=== PATIENT | male | born 1935 | race Caucasian/White ===

== ENCOUNTER 2016-08-11 16:40 | Inpatient (IN) | payer MEDICARE, OTHER ==
[~2016-08-11] VITALS: Ht 172.7 cm; Wt 85.7 kg
[~2016-08-11 16:40] MED LIST: ALLO300T PO; ASPI-496 PO; AZIT500T77 PO; BENA10TA2 PO; BENA20TA2 PO; CEFD300C37 PO; CIPR500T3 PO; CLOP75TA PO; CLOP75TA22 PO; CYAN25009 PO; DIPH25CA46 PO; ERGO400T2 PO; EZET10TA3 PO; FLUT1DIS3 INH; GLIP2.5T16 PO; GLIP5TAB10 PO; GUAI-103 PO; GUAI200T3 PO; HYDR-3342 PO; ISOS20TA3 PO; LACT1CAP24 PO; METO-93 PO; METR500T PO; PREG75CA PO; RANI150T60 PO; SULF1TAB3 PO; TIOT18CA INH; VANC1VIA3 PO
[2016-08-11] MEDS ORDERED: PLEASE ENTER ALLERGIES MC SCH ×2 (17:00)
[2016-08-11] MEDS ORDERED: PIPERACILLIN/TAZO 3.375 GM in SODIUM CHLORIDE 0.9% 50 ML IVPB ONE (17:00)
[2016-08-11] MEDS ORDERED: SODIUM CHLORIDE FLUSH 10ML SYR IVF ONE (17:00)
[2016-08-11] MEDS ORDERED: SODIUM CHLORIDE 0.9% 1,000ML IVBOLUS ONE (17:00)
[2016-08-11] MEDS ORDERED: VANCOMYCIN PER PHARMACY MC ONE (17:00)
[2016-08-11] MEDS ORDERED: PLEASE ENTER HEIGHT AND WEIGHT MC SCH (17:00)
[2016-08-11 17:40] LABS: ASPARTATE AMINO TRANSFERASE 39 U/L (15-37); BLOOD UREA NITROGEN 29 mg/dL (7-18)
[2016-08-11] MEDS ORDERED: [UNRECOGNIZED DRUG - CODE] PO (17:50)
[2016-08-11] MEDS ORDERED: ASPI-496 PO (17:50)
[2016-08-11] MEDS ORDERED: DIPH25CA62 PO (17:50)
[2016-08-11] MEDS ORDERED: EZET10TA3 PO (17:50)
[2016-08-11] MEDS ORDERED: METO50TA4 PO (17:50)
[2016-08-11] MEDS ORDERED: GLIP2.5T16 PO (17:50)
[2016-08-11] MEDS ORDERED: ALLO300T PO (17:50)
[2016-08-11] MEDS ORDERED: CYAN1TAB29 PO (17:50)
[2016-08-11] MEDS ORDERED: CLOP75TA PO (17:50)
[2016-08-11] MEDS ORDERED: PREG75CA PO (17:50)
[2016-08-11] MEDS ORDERED: BENA20TA2 PO (17:50)
[2016-08-11] MEDS ORDERED: VANCOMYCIN 1,500 MG in SODIUM CHLORIDE 0.9% 250 ML IV ONE (18:00)
[2016-08-11] MEDS: SODIUM CHLORIDE 0.9% 1,000 ML IV SCH ×2 (20:10→22:20)
[2016-08-11] MEDS ORDERED: GUAIFENESIN 200 MG TABLET PO PRN (20:30)
[2016-08-11] MEDS ORDERED: GLUCAGON 1 MG IM PRN (20:30)
[2016-08-11] MEDS ORDERED: GUAIFENESIN/DM 200-20MG, 10ML UDC PO PRN (20:30)
[2016-08-11] MEDS ORDERED: BISACODYL 10 MG SUPP PR PRN (20:30)
[2016-08-11] MEDS ORDERED: DEXTROSE 4 GM TAB.CHEW PO PRN (20:30)
[2016-08-11] MEDS ORDERED: DEXTROSE 50%, 50ML SYRINGE IVPush PRN (20:30)
[2016-08-11] MEDS ORDERED: DOCUSATE 100 MG CAPSULE PO PRN (20:30)
[2016-08-11] MEDS ORDERED: ONDANSETRON 2MG/ML, 2ML IVPush PRN (20:30)
[2016-08-11] MEDS ORDERED: ACETAMINOPHEN 325 MG TABLET PO PRN (20:30)
[2016-08-11] MEDS ORDERED: POLYETHYLENE GLYCOL 17 GM PACKET PO PRN (20:30)
[2016-08-11] MEDS: INSULIN ASPART 100 UNITS/ML, PEN SQ-INSULIN SCH (21:00)
[2016-08-11 21:21] VITALS: BP 123/62
[2016-08-11] MEDS: LINEZOLID PMX 600MG/300ML 300 ML IV SCH (22:20)
[2016-08-11] MEDS: VANCOMYCIN 50 MG/ML ORAL SUSP PO SCH (23:06)
[2016-08-11] MEDS: LACTOBACILLUS CHEW TABLET PO SCH (23:08)
[2016-08-11] MEDS: SODIUM CHLORIDE FLUSH 10ML SYR IVF SCH (23:08)
[2016-08-11] MEDS: PREGABALIN 75 MG CAPSULE PO SCH (23:09)
[2016-08-11] MEDS: HEPARIN 5,000 UNITS/ML, 1ML SQ SCH (23:22)
[2016-08-12] MEDS: PIPERACILLIN/TAZO 3.375 GM in SODIUM CHLORIDE 0.9% 50 ML IV SCH ×4 (01:36→19:41)
[2016-08-12 03:49] VITALS: BP 108/53
[2016-08-12 06:33] LABS: ASPARTATE AMINO TRANSFERASE 28 U/L (15-37); BLOOD UREA NITROGEN 30 mg/dL (7-18)
[2016-08-12] MEDS: INSULIN ASPART 100 UNITS/ML, PEN SQ-INSULIN SCH ×4 (07:00→19:43)
[2016-08-12 08:20] VITALS: BP 109/52
[2016-08-12 09:06] LABS: POTASSIUM,URINE RANDOM 68 mmol/L
[2016-08-12] MEDS: ASPIRIN 81 MG TABLET EC PO SCH (09:47)
[2016-08-12] MEDS: VANCOMYCIN 50 MG/ML ORAL SUSP PO SCH ×3 (09:47→18:24)
[2016-08-12] MEDS: PREGABALIN 75 MG CAPSULE PO SCH ×2 (09:47→19:42)
[2016-08-12] MEDS: CLOPIDOGREL 75 MG TABLET PO SCH (09:48)
[2016-08-12] MEDS: LACTOBACILLUS CHEW TABLET PO SCH ×3 (09:48→19:42)
[2016-08-12] MEDS: METOPROLOL SUCCINATE 50 MG TAB.ER.24H PO SCH (09:48)
[2016-08-12] MEDS: BENAZEPRIL 20 MG TABLET PO SCH (09:48)
[2016-08-12] MEDS: EZETIMIBE 10 MG TABLET PO SCH (09:48)
[2016-08-12] MEDS: HEPARIN 5,000 UNITS/ML, 1ML SQ SCH ×3 (09:49→22:08)
[2016-08-12] MEDS: FLUTICASONE/VILANTEROL 100-25MCG/INH INH SCH (09:50)
[2016-08-12] MEDS: SODIUM CHLORIDE FLUSH 10ML SYR IVF SCH ×2 (09:50→19:42)
[2016-08-12] MEDS: SODIUM CHLORIDE 0.9% 1,000 ML IV SCH (10:42)
[2016-08-12] MEDS: LINEZOLID PMX 600MG/300ML 300 ML IV SCH ×2 (10:43→22:08)
[2016-08-12 12:37] VITALS: BP 148/68
[2016-08-12 19:59] VITALS: BP 129/66
[2016-08-13] MEDS: VANCOMYCIN 50 MG/ML ORAL SUSP PO SCH ×4 (00:26→20:41)
[2016-08-13] MEDS: PIPERACILLIN/TAZO 3.375 GM in SODIUM CHLORIDE 0.9% 50 ML IV SCH ×4 (00:27→20:41)
[2016-08-13 01:36] VITALS: BP 112/58
[2016-08-13] MEDS: SODIUM CHLORIDE 0.9% 1,000 ML IV SCH ×3 (01:39→21:25)
[2016-08-13 05:17] LABS: BLOOD UREA NITROGEN 33 mg/dL (7-18)
[2016-08-13 05:18] LABS: ASPARTATE AMINO TRANSFERASE 26 U/L (15-37)
[2016-08-13] MEDS: INSULIN ASPART 100 UNITS/ML, PEN SQ-INSULIN SCH ×4 (07:00→20:41)
[2016-08-13 07:03] VITALS: BP 116/59
[2016-08-13] MEDS: METOPROLOL SUCCINATE 50 MG TAB.ER.24H PO SCH (10:00)
[2016-08-13] MEDS: FLUTICASONE/VILANTEROL 100-25MCG/INH INH SCH (10:00)
[2016-08-13] MEDS: LINEZOLID PMX 600MG/300ML 300 ML IV SCH ×2 (10:00→21:25)
[2016-08-13] MEDS: EZETIMIBE 10 MG TABLET PO SCH (10:00)
[2016-08-13] MEDS: BENAZEPRIL 20 MG TABLET PO SCH (10:00)
[2016-08-13] MEDS: PREGABALIN 75 MG CAPSULE PO SCH ×2 (10:00→21:25)
[2016-08-13] MEDS: CLOPIDOGREL 75 MG TABLET PO SCH (10:00)
[2016-08-13] MEDS: ASPIRIN 81 MG TABLET EC PO SCH (10:00)
[2016-08-13] MEDS: HEPARIN 5,000 UNITS/ML, 1ML SQ SCH ×2 (10:00→18:40)
[2016-08-13] MEDS: LACTOBACILLUS CHEW TABLET PO SCH ×3 (10:00→21:25)
[2016-08-13] MEDS: SODIUM CHLORIDE FLUSH 10ML SYR IVF SCH ×2 (10:00→20:41)
[2016-08-13 14:14] VITALS: BP 127/65
[2016-08-13 20:03] VITALS: BP 140/71
[2016-08-14 01:19] VITALS: BP 137/69
[2016-08-14] MEDS: VANCOMYCIN 50 MG/ML ORAL SUSP PO SCH ×4 (01:57→20:27)
[2016-08-14] MEDS: HEPARIN 5,000 UNITS/ML, 1ML SQ SCH ×3 (01:57→17:14)
[2016-08-14] MEDS: PIPERACILLIN/TAZO 3.375 GM in SODIUM CHLORIDE 0.9% 50 ML IV SCH ×4 (01:57→20:27)
[2016-08-14] MEDS: SODIUM CHLORIDE 0.9% 1,000 ML IV SCH ×2 (05:03→15:39)
[2016-08-14 05:09] LABS: BLOOD UREA NITROGEN 32 mg/dL (7-18)
[2016-08-14] MEDS: INSULIN ASPART 100 UNITS/ML, PEN SQ-INSULIN SCH ×4 (07:00→20:28)
[2016-08-14 07:03] VITALS: BP 130/66
[2016-08-14] MEDS: EZETIMIBE 10 MG TABLET PO SCH (08:18)
[2016-08-14] MEDS: FLUTICASONE/VILANTEROL 100-25MCG/INH INH SCH (08:18)
[2016-08-14] MEDS: LACTOBACILLUS CHEW TABLET PO SCH ×3 (08:19→20:26)
[2016-08-14] MEDS: METOPROLOL SUCCINATE 50 MG TAB.ER.24H PO SCH (08:19)
[2016-08-14] MEDS: PREGABALIN 75 MG CAPSULE PO SCH ×2 (08:19→20:26)
[2016-08-14] MEDS: CLOPIDOGREL 75 MG TABLET PO SCH (08:19)
[2016-08-14] MEDS: SODIUM CHLORIDE FLUSH 10ML SYR IVF SCH ×2 (08:20→20:27)
[2016-08-14] MEDS: ASPIRIN 81 MG TABLET EC PO SCH (08:20)
[2016-08-14] MEDS: BENAZEPRIL 20 MG TABLET PO SCH (08:23)
[2016-08-14] MEDS: LINEZOLID PMX 600MG/300ML 300 ML IV SCH ×2 (09:49→21:45)
[2016-08-14 14:16] VITALS: BP 136/70
[2016-08-14 18:43] VITALS: BP 137/64
[2016-08-14 23:24] VITALS: BP 148/83
[2016-08-15] MEDS: VANCOMYCIN 50 MG/ML ORAL SUSP PO SCH ×4 (00:38→19:17)
[2016-08-15] MEDS: HYDROcodone/APAP 5/325 TABLET PO PRN ×3 (00:57→20:19)
[2016-08-15] MEDS: SODIUM CHLORIDE 0.9% 1,000 ML IV SCH ×2 (02:23→14:12)
[2016-08-15] MEDS: HEPARIN 5,000 UNITS/ML, 1ML SQ SCH ×3 (02:23→19:17)
[2016-08-15] MEDS: PIPERACILLIN/TAZO 3.375 GM in SODIUM CHLORIDE 0.9% 50 ML IV SCH ×4 (02:23→22:57)
[2016-08-15 04:35] LABS: BLOOD UREA NITROGEN 34 mg/dL (7-18)
[2016-08-15 07:21] VITALS: BP 135/76
[2016-08-15] MEDS: INSULIN ASPART 100 UNITS/ML, PEN SQ-INSULIN SCH ×4 (07:43→20:17)
[2016-08-15] MEDS: FLUTICASONE/VILANTEROL 100-25MCG/INH INH SCH (08:44)
[2016-08-15] MEDS: SODIUM CHLORIDE FLUSH 10ML SYR IVF SCH ×2 (08:44→20:18)
[2016-08-15] MEDS: LACTOBACILLUS CHEW TABLET PO SCH ×3 (08:45→20:18)
[2016-08-15] MEDS: ASPIRIN 81 MG TABLET EC PO SCH (08:45)
[2016-08-15] MEDS: PREGABALIN 75 MG CAPSULE PO SCH ×2 (08:45→20:18)
[2016-08-15] MEDS: METOPROLOL SUCCINATE 50 MG TAB.ER.24H PO SCH (08:45)
[2016-08-15] MEDS: BENAZEPRIL 20 MG TABLET PO SCH (08:45)
[2016-08-15] MEDS: EZETIMIBE 10 MG TABLET PO SCH (08:45)
[2016-08-15] MEDS: CLOPIDOGREL 75 MG TABLET PO SCH (08:50)
[2016-08-15] MEDS: LINEZOLID PMX 600MG/300ML 300 ML IV SCH ×2 (09:47→20:18)
[2016-08-15 14:38] VITALS: BP 154/78
[2016-08-15 18:44] VITALS: BP 157/80
[2016-08-15] MEDS: TEMAZEPAM 15 MG CAPSULE PO PRN (22:55)
[2016-08-16 01:00] VITALS: BP 136/81
[2016-08-16] MEDS: HEPARIN 5,000 UNITS/ML, 1ML SQ SCH ×3 (01:24→17:32)
[2016-08-16] MEDS: VANCOMYCIN 50 MG/ML ORAL SUSP PO SCH ×3 (01:24→19:59)
[2016-08-16] MEDS: PIPERACILLIN/TAZO 3.375 GM in SODIUM CHLORIDE 0.9% 50 ML IV SCH ×4 (03:18→19:58)
[2016-08-16] MEDS: SODIUM CHLORIDE 0.9% 1,000 ML IV SCH ×2 (03:19→14:42)
[2016-08-16 04:52] LABS: BLOOD UREA NITROGEN 32 mg/dL (7-18)
[2016-08-16] MEDS: HYDROcodone/APAP 5/325 TABLET PO PRN ×3 (06:15→15:10)
[2016-08-16] MEDS: INSULIN ASPART 100 UNITS/ML, PEN SQ-INSULIN SCH ×4 (07:00→20:00)
[2016-08-16 07:06] VITALS: BP 133/78
[2016-08-16] MEDS: SODIUM CHLORIDE FLUSH 10ML SYR IVF SCH ×2 (09:00→19:58)
[2016-08-16] MEDS: FLUTICASONE/VILANTEROL 100-25MCG/INH INH SCH (09:06)
[2016-08-16] MEDS: LACTOBACILLUS CHEW TABLET PO SCH ×3 (09:07→19:58)
[2016-08-16] MEDS: EZETIMIBE 10 MG TABLET PO SCH (09:07)
[2016-08-16] MEDS: BENAZEPRIL 20 MG TABLET PO SCH (09:07)
[2016-08-16] MEDS: CLOPIDOGREL 75 MG TABLET PO SCH (09:07)
[2016-08-16] MEDS: ASPIRIN 81 MG TABLET EC PO SCH (09:07)
[2016-08-16] MEDS: PREGABALIN 75 MG CAPSULE PO SCH ×2 (09:07→19:58)
[2016-08-16] MEDS: METOPROLOL SUCCINATE 50 MG TAB.ER.24H PO SCH (09:07)
[2016-08-16] MEDS: LINEZOLID PMX 600MG/300ML 300 ML IV SCH ×2 (11:03→23:09)
[2016-08-16 15:01] VITALS: BP 129/77
[2016-08-16 17:32] LABS: BLOOD UREA NITROGEN 30 mg/dL (7-18)
[2016-08-16 20:08] VITALS: BP_SYST 159; BP_SYST 175; BP_DIAS 73; BP_DIAS 81
[2016-08-17 02:42] VITALS: BP 167/78
[2016-08-17] MEDS: HYDROcodone/APAP 5/325 TABLET PO PRN ×3 (02:50→20:00)
[2016-08-17] MEDS: SODIUM CHLORIDE 0.9% 1,000 ML IV SCH (02:53)
[2016-08-17] MEDS: PIPERACILLIN/TAZO 3.375 GM in SODIUM CHLORIDE 0.9% 50 ML IV SCH (02:53)
[2016-08-17] MEDS: HEPARIN 5,000 UNITS/ML, 1ML SQ SCH ×3 (02:53→18:00)
[2016-08-17 06:49] VITALS: BP 131/74
[2016-08-17] MEDS: INSULIN ASPART 100 UNITS/ML, PEN SQ-INSULIN SCH ×4 (07:28→19:45)
[2016-08-17] MEDS: BENAZEPRIL 20 MG TABLET PO SCH (09:23)
[2016-08-17] MEDS: LACTOBACILLUS CHEW TABLET PO SCH ×3 (09:23→19:59)
[2016-08-17] MEDS: METOPROLOL SUCCINATE 50 MG TAB.ER.24H PO SCH (09:23)
[2016-08-17] MEDS: PREGABALIN 75 MG CAPSULE PO SCH ×2 (09:23→19:59)
[2016-08-17] MEDS: ASPIRIN 81 MG TABLET EC PO SCH (09:23)
[2016-08-17] MEDS: VANCOMYCIN 50 MG/ML ORAL SUSP PO SCH ×2 (09:23→20:00)
[2016-08-17] MEDS: CLOPIDOGREL 75 MG TABLET PO SCH (09:24)
[2016-08-17] MEDS: SODIUM CHLORIDE FLUSH 10ML SYR IVF SCH ×2 (09:24→19:59)
[2016-08-17] MEDS: EZETIMIBE 10 MG TABLET PO SCH (09:24)
[2016-08-17] MEDS: FLUTICASONE/VILANTEROL 100-25MCG/INH INH SCH (09:24)
[2016-08-17] MEDS ORDERED: LEVOFLOXACIN 750 MG TABLET PO SCH (10:00)
[2016-08-17] MEDS: LINEZOLID 600 MG TABLET PO SCH ×2 (10:12→19:59)
[2016-08-17 13:55] VITALS: BP 158/80
[2016-08-17 19:12] VITALS: BP 165/89
[2016-08-18] MEDS: HYDROcodone/APAP 5/325 TABLET PO PRN ×2 (00:48→17:09)
[2016-08-18 01:41] VITALS: BP 157/82
[2016-08-18] MEDS: HEPARIN 5,000 UNITS/ML, 1ML SQ SCH ×3 (02:00→20:14)
[2016-08-18] MEDS: INSULIN ASPART 100 UNITS/ML, PEN SQ-INSULIN SCH ×4 (07:00→20:12)
[2016-08-18 07:32] VITALS: BP 149/74
[2016-08-18] MEDS: PREGABALIN 75 MG CAPSULE PO SCH ×2 (08:17→20:14)
[2016-08-18] MEDS: BENAZEPRIL 20 MG TABLET PO SCH (08:17)
[2016-08-18] MEDS: LACTOBACILLUS CHEW TABLET PO SCH ×3 (08:17→20:14)
[2016-08-18] MEDS: LINEZOLID 600 MG TABLET PO SCH ×2 (08:17→20:14)
[2016-08-18] MEDS: METOPROLOL SUCCINATE 50 MG TAB.ER.24H PO SCH (08:17)
[2016-08-18] MEDS: CLOPIDOGREL 75 MG TABLET PO SCH (08:17)
[2016-08-18] MEDS: EZETIMIBE 10 MG TABLET PO SCH (08:17)
[2016-08-18] MEDS: VANCOMYCIN 50 MG/ML ORAL SUSP PO SCH ×2 (08:17→20:14)
[2016-08-18] MEDS ORDERED: FUROSEMIDE 20 MG/2 ML IV ONE (08:30)
[2016-08-18] MEDS: FLUTICASONE/VILANTEROL 100-25MCG/INH INH SCH (08:32)
[2016-08-18] MEDS: SODIUM CHLORIDE FLUSH 10ML SYR IVF SCH ×2 (08:33→20:13)
[2016-08-18] MEDS: ASPIRIN 81 MG TABLET EC PO SCH (08:34)
[2016-08-18 12:03] LABS: BLOOD UREA NITROGEN 31 mg/dL (7-18)
[2016-08-18 13:10] VITALS: BP 127/76
[2016-08-18 19:28] VITALS: BP 151/77
[2016-08-18] MEDS: FUROSEMIDE 20 MG/2 ML IV SCH (20:13)
[2016-08-19 01:40] VITALS: BP 144/72
[2016-08-19] MEDS: HEPARIN 5,000 UNITS/ML, 1ML SQ SCH ×3 (01:57→17:29)
[2016-08-19] MEDS: HYDROcodone/APAP 5/325 TABLET PO PRN ×2 (03:11→21:49)
[2016-08-19 03:38] LABS: BLOOD UREA NITROGEN 31 mg/dL (7-18)
[2016-08-19 07:39] VITALS: BP 143/79
[2016-08-19] MEDS ORDERED: LEVOFLOXACIN 500 MG TABLET PO SCH ×2 (08:00→10:00)
[2016-08-19] MEDS: INSULIN ASPART 100 UNITS/ML, PEN SQ-INSULIN SCH ×4 (09:56→21:00)
[2016-08-19] MEDS: ASPIRIN 81 MG TABLET EC PO SCH (10:00)
[2016-08-19] MEDS: LACTOBACILLUS CHEW TABLET PO SCH ×3 (10:00→21:49)
[2016-08-19] MEDS: METOPROLOL SUCCINATE 50 MG TAB.ER.24H PO SCH (10:01)
[2016-08-19] MEDS: EZETIMIBE 10 MG TABLET PO SCH (10:01)
[2016-08-19] MEDS: VANCOMYCIN 50 MG/ML ORAL SUSP PO SCH ×2 (10:01→21:49)
[2016-08-19] MEDS: BENAZEPRIL 20 MG TABLET PO SCH (10:01)
[2016-08-19] MEDS: LINEZOLID 600 MG TABLET PO SCH (10:01)
[2016-08-19] MEDS: CLOPIDOGREL 75 MG TABLET PO SCH (10:01)
[2016-08-19] MEDS: PREGABALIN 75 MG CAPSULE PO SCH ×2 (10:01→21:49)
[2016-08-19] MEDS: FLUTICASONE/VILANTEROL 100-25MCG/INH INH SCH (10:02)
[2016-08-19] MEDS: FUROSEMIDE 20 MG/2 ML IV SCH ×2 (10:02→21:49)
[2016-08-19] MEDS: SODIUM CHLORIDE FLUSH 10ML SYR IVF SCH ×2 (10:03→21:49)
[2016-08-19 13:10] VITALS: BP 117/70
[2016-08-19] MEDS ORDERED: PHARMACY INSTRUCTION MC SCH (15:00)
[2016-08-19 20:58] VITALS: BP 144/77
[2016-08-20 01:55] VITALS: BP 124/70
[2016-08-20] MEDS: HEPARIN 5,000 UNITS/ML, 1ML SQ SCH ×3 (02:37→18:00)
[2016-08-20 03:13] LABS: BLOOD UREA NITROGEN 34 mg/dL (7-18)
[2016-08-20] MEDS: HYDROcodone/APAP 5/325 TABLET PO PRN (05:07)
[2016-08-20 06:55] VITALS: BP 111/60
[2016-08-20] MEDS: INSULIN ASPART 100 UNITS/ML, PEN SQ-INSULIN SCH ×4 (07:00→21:00)
[2016-08-20] MEDS: FLUTICASONE/VILANTEROL 100-25MCG/INH INH SCH (08:45)
[2016-08-20] MEDS: LACTOBACILLUS CHEW TABLET PO SCH ×3 (08:46→21:42)
[2016-08-20] MEDS: SODIUM CHLORIDE FLUSH 10ML SYR IVF SCH ×2 (08:46→21:42)
[2016-08-20] MEDS: ASPIRIN 81 MG TABLET EC PO SCH (08:46)
[2016-08-20] MEDS: FUROSEMIDE 20 MG/2 ML IV SCH ×2 (08:46→21:42)
[2016-08-20] MEDS: CLOPIDOGREL 75 MG TABLET PO SCH (08:47)
[2016-08-20] MEDS: PREGABALIN 75 MG CAPSULE PO SCH ×2 (08:47→21:42)
[2016-08-20] MEDS: EZETIMIBE 10 MG TABLET PO SCH (08:47)
[2016-08-20] MEDS: VANCOMYCIN 50 MG/ML ORAL SUSP PO SCH ×2 (08:47→21:42)
[2016-08-20] MEDS: BENAZEPRIL 20 MG TABLET PO SCH ×2 (08:47→09:00)
[2016-08-20] MEDS: METOPROLOL SUCCINATE 50 MG TAB.ER.24H PO SCH (09:00)
[2016-08-20 14:45] VITALS: BP 141/72
[2016-08-20 21:34] VITALS: BP 148/79
[2016-08-20] MEDS: TEMAZEPAM 15 MG CAPSULE PO PRN (22:02)
[2016-08-21] MEDS: HEPARIN 5,000 UNITS/ML, 1ML SQ SCH ×2 (02:13→13:10)
[2016-08-21 03:08] LABS: BLOOD UREA NITROGEN 36 mg/dL (7-18)
[2016-08-21 05:00] VITALS: BP 130/80
[2016-08-21] MEDS: INSULIN ASPART 100 UNITS/ML, PEN SQ-INSULIN SCH ×4 (07:00→21:00)
[2016-08-21] MEDS ORDERED: LEVOFLOXACIN 750 MG TABLET PO SCH (08:00)
[2016-08-21 08:05] VITALS: BP 138/87
[2016-08-21] MEDS: FUROSEMIDE 20 MG/2 ML IV SCH (08:33)
[2016-08-21] MEDS: VANCOMYCIN 50 MG/ML ORAL SUSP PO SCH ×2 (08:34→20:41)
[2016-08-21] MEDS: SODIUM CHLORIDE FLUSH 10ML SYR IVF SCH ×2 (08:34→20:41)
[2016-08-21] MEDS: FLUTICASONE/VILANTEROL 100-25MCG/INH INH SCH (08:34)
[2016-08-21] MEDS: EZETIMIBE 10 MG TABLET PO SCH (08:35)
[2016-08-21] MEDS: METOPROLOL SUCCINATE 50 MG TAB.ER.24H PO SCH (08:35)
[2016-08-21] MEDS: BENAZEPRIL 20 MG TABLET PO SCH (08:35)
[2016-08-21] MEDS: PREGABALIN 75 MG CAPSULE PO SCH ×2 (08:35→20:41)
[2016-08-21] MEDS: CLOPIDOGREL 75 MG TABLET PO SCH (08:35)
[2016-08-21] MEDS: ASPIRIN 81 MG TABLET EC PO SCH (08:36)
[2016-08-21] MEDS: LACTOBACILLUS CHEW TABLET PO SCH ×3 (08:36→20:41)
[2016-08-21 14:30] VITALS: BP 144/75
[2016-08-21 19:02] VITALS: BP 148/77
[2016-08-21] MEDS: TEMAZEPAM 15 MG CAPSULE PO PRN (20:41)
[2016-08-22 03:34] VITALS: BP 131/68
[2016-08-22 04:44] LABS: BLOOD UREA NITROGEN 35 mg/dL (7-18)
[2016-08-22] MEDS: INSULIN ASPART 100 UNITS/ML, PEN SQ-INSULIN SCH ×2 (07:00→11:00)
[2016-08-22 07:53] VITALS: BP 138/74
[2016-08-22] MEDS ORDERED: POTASSIUM CHLORIDE 10 MEQ TABLET.ER PO SCH (08:00)
[2016-08-22] MEDS: ASPIRIN 81 MG TABLET EC PO SCH (08:46)
[2016-08-22] MEDS: LACTOBACILLUS CHEW TABLET PO SCH (08:46)
[2016-08-22] MEDS: EZETIMIBE 10 MG TABLET PO SCH (08:46)
[2016-08-22] MEDS: METOPROLOL SUCCINATE 50 MG TAB.ER.24H PO SCH (08:46)
[2016-08-22] MEDS: VANCOMYCIN 50 MG/ML ORAL SUSP PO SCH (08:47)
[2016-08-22] MEDS: CLOPIDOGREL 75 MG TABLET PO SCH (08:47)
[2016-08-22] MEDS: PREGABALIN 75 MG CAPSULE PO SCH (08:47)
[2016-08-22] MEDS: FLUTICASONE/VILANTEROL 100-25MCG/INH INH SCH (08:47)
[2016-08-22] MEDS: BENAZEPRIL 20 MG TABLET PO SCH (08:47)
[2016-08-22] MEDS: SODIUM CHLORIDE FLUSH 10ML SYR IVF SCH (08:53)
[2016-08-22] MEDS ORDERED: FUROSEMIDE 40 MG TABLET PO SCH (09:00)
[2016-08-22] MEDS ORDERED: ENOXAPARIN 30 MG/0.3 ML SQ SCH (10:00)
[2016-08-22] MEDS ORDERED: ENOXAPARIN 40 MG/0.4 ML SQ SCH (10:00)
[2016-08-22] MEDS ORDERED: POLY17PO5 PO (12:50)
[2016-08-22] MEDS ORDERED: LEVO750T26 PO (12:50)
[2016-08-22] MEDS ORDERED: ACID1TAB7 PO (12:50)
[2016-08-22] MEDS ORDERED: FURO40TA6 PO (12:50)
[2016-08-22] MEDS ORDERED: POTA10TA31 PO (12:54)
[2016-08-22 14:30] VITALS: BP 150/78
[2016-08-22] MEDS ORDERED: VANC125C11 PO (16:27)
[2016-08-22] MEDS ORDERED: VANC125C2 PO (16:27)
[2016-08-22] MEDS ORDERED: VANC1VIA3 PO (16:53)
== END 2016-08-22 17:00 | disposition home health service (06) | DRG 871 ==
LOC: MERGE 19:35 → ED 19:35 → EDIP 19:47 → SUATTDRO 19:47 → 3NW 20:57
DX: A41.9 Sepsis, unspecified organism (principal); N17.0 Acute kidney failure with tubular necrosis; E43 Unspecified severe protein-calorie malnutrition; J96.01 Acute respiratory failure with hypoxia; J15.9 Unspecified bacterial pneumonia; E87.2 Acidosis; I50.22 Chronic systolic (congestive) heart failure; N18.4 Chronic kidney disease, stage 4 (severe); R18.8 Other ascites; J44.0 Chronic obstructive pulmonary disease with (acute) lower respiratory infection; I13.0 Hypertensive heart and chronic kidney disease with heart failure and stage 1 through stage 4 chronic kidney disease, or unspecified chronic kidney disease; C78.89 Secondary malignant neoplasm of other digestive organs; C22.1 Intrahepatic bile duct carcinoma; A04.7 Enterocolitis due to Clostridium difficile; D89.9 Disorder involving the immune mechanism, unspecified; I25.10 Atherosclerotic heart disease of native coronary artery without angina pectoris; E11.22 Type 2 diabetes mellitus with diabetic chronic kidney disease; G62.9 Polyneuropathy, unspecified; I71.4 Abdominal aortic aneurysm, without rupture; M10.9 Gout, unspecified; I35.1 Nonrheumatic aortic (valve) insufficiency; G89.29 Other chronic pain; N50.89 Other specified disorders of the male genital organs; E78.5 Hyperlipidemia, unspecified; D63.8 Anemia in other chronic diseases classified elsewhere; Z90.49 Acquired absence of other specified parts of digestive tract; Z85.09 Personal history of malignant neoplasm of other digestive organs; I25.2 Old myocardial infarction; Z85.05 Personal history of malignant neoplasm of liver; Z87.891 Personal history of nicotine dependence; Z86.14 Personal history of Methicillin resistant Staphylococcus aureus infection; Z99.81 Dependence on supplemental oxygen; Z90.5 Acquired absence of kidney; Z86.19 Personal history of other infectious and parasitic diseases; Z68.28 Body mass index [BMI] 28.0-28.9, adult; Z95.0 Presence of cardiac pacemaker; Z95.5 Presence of coronary angioplasty implant and graft; Z85.528 Personal history of other malignant neoplasm of kidney; Z86.73 Personal history of transient ischemic attack (TIA), and cerebral infarction without residual deficits; Z92.21 Personal history of antineoplastic chemotherapy
CPT/HCPCS: 36415; 71010; 71020; 74176; 80048; 80053; 81001; 82140; 82436; 82570; 82962; 83605; 83735; 84100; 84133; 84145; 84300; 85014; 85018; 85025; 85610; 85730; 87040; 87070; 87077; 87086; 87186; 87205; 87324; 93005; 96365; 96366; 96367; J1644; J1650; J2020; J2543; J3370; J1940; J7030; J7050

== ENCOUNTER 2016-09-02 22:55 | Inpatient (IN) | payer MEDICARE, OTHER ==
[~2016-09-02] VITALS: Ht 172.7 cm; Wt 74.6 kg
[~2016-09-02 22:55] MED LIST changes: +ACID1TAB7 PO; +CYAN1TAB29 PO; +DIPH25CA62 PO; +FURO40TA6 PO; +LEVO750T26 PO; +METO50TA4 PO; +POLY17PO5 PO; +POTA10TA31 PO; +VANC125C11 PO; +VANC125C2 PO; +[UNRECOGNIZED DRUG - CODE] PO
[2016-09-02] MEDS ORDERED: SODIUM CHLORIDE FLUSH 10ML SYR IVF ONE (23:30)
[2016-09-02] MEDS ORDERED: MORPHINE SULFATE 4 MG/ML, 1ML IVPush ONE (23:30)
[2016-09-03 00:16] LABS: ASPARTATE AMINO TRANSFERASE 75 U/L (15-37); BLOOD UREA NITROGEN 49 mg/dL (7-18)
[2016-09-03] MEDS ORDERED: FURO20TA3 PO (00:46)
[2016-09-03 05:56] VITALS: BP 132/72
[2016-09-03] MEDS: SODIUM CHLORIDE 0.9% 1,000 ML IV SCH ×2 (07:54→17:54)
[2016-09-03] MEDS ORDERED: ONDANSETRON 2MG/ML, 2ML IVPush PRN (08:00)
[2016-09-03] MEDS ORDERED: morphine SULFATE 10 MG/ML, 1ML IVPush PRN (08:00)
[2016-09-03] MEDS: CEFTRIAXONE PMX 2GM/50ML 50 ML IVPB SCH (08:04)
[2016-09-03] MEDS: METRONIDAZOLE PMX 500MG/100ML 100 ML IV SCH ×2 (09:00→16:18)
[2016-09-03] MEDS: GLIPizide ER 2.5 MG TABLET PO SCH (09:00)
[2016-09-03] MEDS: FUROSEMIDE 20 MG/2 ML IV SCH ×2 (09:00→18:33)
[2016-09-03] MEDS ORDERED: LIDOCAINE 1%, 20ML ONE (09:09)
[2016-09-03] MEDS ORDERED: SODIUM BICARBONATE 4.2%, 5ML ONE (09:10)
[2016-09-03] MEDS: ENOXAPARIN 30 MG/0.3 ML SQ SCH (09:30)
[2016-09-03 11:21] VITALS: BP 112/61
[2016-09-03] MEDS: METOPROLOL SUCCINATE 50 MG TAB.ER.24H PO SCH (11:23)
[2016-09-03] MEDS: CLOPIDOGREL 75 MG TABLET PO SCH (11:23)
[2016-09-03 14:20] VITALS: BP 113/68
[2016-09-03 19:21] VITALS: BP 126/74
[2016-09-04] VITALS (10 sets, daily range): BP systolic 102–123; BP diastolic 61–68
[2016-09-04] MEDS: METRONIDAZOLE PMX 500MG/100ML 100 ML IV SCH ×3 (00:36→16:30)
[2016-09-04] MEDS: SODIUM CHLORIDE 0.9% 1,000 ML IV SCH ×2 (05:40→22:40)
[2016-09-04 06:52] LABS: ASPARTATE AMINO TRANSFERASE 44 U/L (15-37); BLOOD UREA NITROGEN 44 mg/dL (7-18)
[2016-09-04] MEDS ORDERED: FUROSEMIDE 20 MG/2 ML IV ONE (07:30)
[2016-09-04] MEDS: CEFTRIAXONE PMX 2GM/50ML 50 ML IVPB SCH (08:12)
[2016-09-04] MEDS: FUROSEMIDE 20 MG/2 ML IV SCH ×2 (08:13→16:30)
[2016-09-04] MEDS: GLIPizide ER 2.5 MG TABLET PO SCH (09:00)
[2016-09-04] MEDS: METOPROLOL SUCCINATE 50 MG TAB.ER.24H PO SCH (09:50)
[2016-09-04] MEDS: CLOPIDOGREL 75 MG TABLET PO SCH (09:50)
[2016-09-04] MEDS: ENOXAPARIN 30 MG/0.3 ML SQ SCH (09:50)
[2016-09-05] MEDS: METRONIDAZOLE PMX 500MG/100ML 100 ML IV SCH ×3 (00:36→18:06)
[2016-09-05 01:46] VITALS: BP 117/63
[2016-09-05 03:39] LABS: BLOOD UREA NITROGEN 48 mg/dL (7-18)
[2016-09-05 08:15] VITALS: BP 102/58
[2016-09-05] MEDS: METOPROLOL SUCCINATE 50 MG TAB.ER.24H PO SCH (09:31)
[2016-09-05] MEDS: FUROSEMIDE 20 MG/2 ML IV SCH ×2 (09:31→18:07)
[2016-09-05] MEDS: CLOPIDOGREL 75 MG TABLET PO SCH (09:31)
[2016-09-05] MEDS: CEFTRIAXONE PMX 2GM/50ML 50 ML IVPB SCH (09:31)
[2016-09-05] MEDS: GLIPizide ER 2.5 MG TABLET PO SCH (09:31)
[2016-09-05] MEDS: SODIUM CHLORIDE 0.9% 1,000 ML IV SCH ×2 (09:32→20:17)
[2016-09-05] MEDS: ENOXAPARIN 30 MG/0.3 ML SQ SCH (10:53)
[2016-09-05] MEDS: OXYcodone IR 5MG TABLET PO PRN (12:52)
[2016-09-05 15:35] VITALS: BP 133/69
[2016-09-05 18:54] VITALS: BP 122/72
[2016-09-06] MEDS: METRONIDAZOLE PMX 500MG/100ML 100 ML IV SCH ×3 (01:49→17:14)
[2016-09-06 03:45] VITALS: BP 111/66
[2016-09-06] MEDS: SODIUM CHLORIDE 0.9% 1,000 ML IV SCH (04:21)
[2016-09-06 04:56] LABS: ASPARTATE AMINO TRANSFERASE 40 U/L (15-37); BLOOD UREA NITROGEN 45 mg/dL (7-18)
[2016-09-06 07:58] VITALS: BP 113/61
[2016-09-06] MEDS: CLOPIDOGREL 75 MG TABLET PO SCH (08:46)
[2016-09-06] MEDS: GLIPizide ER 2.5 MG TABLET PO SCH (08:46)
[2016-09-06] MEDS: CEFTRIAXONE PMX 2GM/50ML 50 ML IVPB SCH (08:46)
[2016-09-06] MEDS: FUROSEMIDE 20 MG/2 ML IV SCH (08:46)
[2016-09-06] MEDS: ENOXAPARIN 30 MG/0.3 ML SQ SCH (08:47)
[2016-09-06] MEDS: METOPROLOL SUCCINATE 50 MG TAB.ER.24H PO SCH (08:47)
[2016-09-06] MEDS: FUROSEMIDE 40 MG/4 ML IV SCH ×2 (09:15→16:14)
[2016-09-06 14:07] VITALS: BP 102/61
[2016-09-06 19:15] VITALS: BP 119/69
[2016-09-06] MEDS: OXYcodone IR 5MG TABLET PO PRN (21:18)
[2016-09-07 01:19] VITALS: BP 113/63
[2016-09-07] MEDS: METRONIDAZOLE PMX 500MG/100ML 100 ML IV SCH ×3 (01:59→16:50)
[2016-09-07 02:32] LABS: BLOOD UREA NITROGEN 43 mg/dL (7-18)
[2016-09-07] MEDS: ONDANSETRON 2MG/ML, 2ML IVPush PRN (06:46)
[2016-09-07 08:15] VITALS: BP 99/53
[2016-09-07] MEDS: CEFTRIAXONE PMX 2GM/50ML 50 ML IVPB SCH (08:26)
[2016-09-07] MEDS: METOPROLOL SUCCINATE 50 MG TAB.ER.24H PO SCH (08:26)
[2016-09-07] MEDS: CLOPIDOGREL 75 MG TABLET PO SCH (08:26)
[2016-09-07] MEDS: FUROSEMIDE 40 MG/4 ML IV SCH ×2 (08:26→16:50)
[2016-09-07] MEDS: GLIPizide ER 2.5 MG TABLET PO SCH (08:26)
[2016-09-07] MEDS: ENOXAPARIN 30 MG/0.3 ML SQ SCH (08:31)
[2016-09-07 14:18] VITALS: BP 111/62
[2016-09-07] MEDS: OXYcodone IR 5MG TABLET PO PRN ×2 (16:50→22:00)
[2016-09-07 19:53] VITALS: BP 106/64
[2016-09-08] MEDS: METRONIDAZOLE PMX 500MG/100ML 100 ML IV SCH ×3 (01:53→18:32)
[2016-09-08 02:18] VITALS: BP 106/61
[2016-09-08 06:38] VITALS: BP 115/62
[2016-09-08] MEDS: GLIPizide ER 2.5 MG TABLET PO SCH (08:15)
[2016-09-08] MEDS: CLOPIDOGREL 75 MG TABLET PO SCH (08:15)
[2016-09-08] MEDS: ENOXAPARIN 30 MG/0.3 ML SQ SCH (08:16)
[2016-09-08] MEDS: FUROSEMIDE 40 MG/4 ML IV SCH ×2 (08:16→18:32)
[2016-09-08] MEDS: CEFTRIAXONE PMX 2GM/50ML 50 ML IVPB SCH (08:16)
[2016-09-08] MEDS: ONDANSETRON 2MG/ML, 2ML IVPush PRN (08:16)
[2016-09-08] MEDS: METOPROLOL SUCCINATE 50 MG TAB.ER.24H PO SCH (08:16)
[2016-09-08] MEDS ORDERED: SODIUM BICARBONATE 4.2%, 5ML ONE (14:14)
[2016-09-08] MEDS ORDERED: LIDOCAINE 1%, 20ML ONE (14:14)
[2016-09-08] MEDS: OXYcodone IR 5MG TABLET PO PRN ×2 (16:07→23:48)
[2016-09-08 16:11] VITALS: BP 117/58
[2016-09-08 20:03] VITALS: BP 118/60
[2016-09-09] MEDS: METRONIDAZOLE PMX 500MG/100ML 100 ML IV SCH ×2 (02:22→08:10)
[2016-09-09 02:33] VITALS: BP 106/59
[2016-09-09 07:20] VITALS: BP 102/54
[2016-09-09] MEDS: GLIPizide ER 2.5 MG TABLET PO SCH (08:03)
[2016-09-09] MEDS: METOPROLOL SUCCINATE 50 MG TAB.ER.24H PO SCH (08:03)
[2016-09-09] MEDS: CEFTRIAXONE PMX 2GM/50ML 50 ML IVPB SCH (08:03)
[2016-09-09] MEDS: CLOPIDOGREL 75 MG TABLET PO SCH (08:03)
[2016-09-09] MEDS: FUROSEMIDE 40 MG/4 ML IV SCH (08:03)
[2016-09-09] MEDS: ENOXAPARIN 30 MG/0.3 ML SQ SCH (08:04)
[2016-09-09] MEDS ORDERED: OXYC5TAB3 PO (08:51)
[2016-09-09] MEDS ORDERED: SPIR50TA PO (08:51)
[2016-09-09] MEDS ORDERED: TRAM50TA2 PO (08:51)
[2016-09-09] MEDS: OXYcodone IR 5MG TABLET PO PRN ×2 (12:11→16:21)
[2016-09-09 14:02] VITALS: BP 106/54
[2016-09-09] MEDS: ONDANSETRON 2MG/ML, 2ML IVPush PRN (16:21)
[2016-09-09] MEDS ORDERED: metroNIDAZOLE 500 MG TABLET PO SCH (17:00)
== END 2016-09-09 16:51 | DRG 435 ==
LOC: ED 23:59 → EDIP 09-03 03:01 → 4WST 09-03 05:45 → 3NW 09-04 17:27
PROVIDERS: ADMIT Internal Medicine; ATTEND Internal Medicine
PROC: 0W9G3ZZ Drainage of Peritoneal Cavity, Percutaneous Approach (ICD-10-PCS; 2016-09-03)
PROC: 30233N1 Transfusion of Nonautologous Red Blood Cells into Peripheral Vein, Percutaneous Approach (ICD-10-PCS; principal; 2016-09-04)
PROC: 0W9G3ZZ Drainage of Peritoneal Cavity, Percutaneous Approach (ICD-10-PCS; 2016-09-08)
DX: C78.7 Secondary malignant neoplasm of liver and intrahepatic bile duct (principal); E43 Unspecified severe protein-calorie malnutrition; G93.41 Metabolic encephalopathy; I50.31 Acute diastolic (congestive) heart failure; K65.2 Spontaneous bacterial peritonitis; R18.8 Other ascites; N39.0 Urinary tract infection, site not specified; N18.4 Chronic kidney disease, stage 4 (severe); I13.0 Hypertensive heart and chronic kidney disease with heart failure and stage 1 through stage 4 chronic kidney disease, or unspecified chronic kidney disease; N17.9 Acute kidney failure, unspecified; K74.60 Unspecified cirrhosis of liver; D64.9 Anemia, unspecified; E11.22 Type 2 diabetes mellitus with diabetic chronic kidney disease; E78.5 Hyperlipidemia, unspecified; E11.40 Type 2 diabetes mellitus with diabetic neuropathy, unspecified; I25.10 Atherosclerotic heart disease of native coronary artery without angina pectoris; I71.4 Abdominal aortic aneurysm, without rupture; J44.9 Chronic obstructive pulmonary disease, unspecified; Z85.05 Personal history of malignant neoplasm of liver; I25.2 Old myocardial infarction; Z86.14 Personal history of Methicillin resistant Staphylococcus aureus infection; Z86.73 Personal history of transient ischemic attack (TIA), and cerebral infarction without residual deficits; Z87.01 Personal history of pneumonia (recurrent); Z87.891 Personal history of nicotine dependence; Z90.49 Acquired absence of other specified parts of digestive tract; Z90.5 Acquired absence of kidney; Z92.21 Personal history of antineoplastic chemotherapy; Z95.0 Presence of cardiac pacemaker; Z95.5 Presence of coronary angioplasty implant and graft; Z86.19 Personal history of other infectious and parasitic diseases; Z68.25 Body mass index [BMI] 25.0-25.9, adult; Z79.82 Long term (current) use of aspirin; Z79.899 Other long term (current) drug therapy; Z66 Do not resuscitate
CPT/HCPCS: 36415; 49083; 70450; 71010; 74176; 76700; 80048; 80053; 81001; 82140; 83605; 83735; 83880; 84100; 84145; 84157; 85025; 85610; 85730; 86850; 86900; 86923; 87040; 87070; 87075; 87086; 87205; 87324; 89051; 93005; 99285; J0696; J1650; J1940; J2405; J3490; J7030; P9016

== ENCOUNTER 2016-09-25 09:46 | Inpatient (IN) | payer MEDICARE, OTHER ==
[~2016-09-25] VITALS: Ht 172.7 cm; Wt 70.6 kg
[~2016-09-25 09:46] MED LIST changes: +FURO20TA3 PO; +OXYC5TAB3 PO; +SPIR50TA PO; +TRAM50TA2 PO
[2016-09-25] MEDS ORDERED: SODIUM CHLORIDE FLUSH 10ML SYR IVF ONE (10:30)
[2016-09-25 10:52] LABS: ASPARTATE AMINO TRANSFERASE 68 U/L (15-37); BLOOD UREA NITROGEN 90 mg/dL (7-18)
[2016-09-25 10:55] LABS: DIFF TOTAL CELLS COUNTED 100 CELL DIFF
[2016-09-25 10:57] LABS: VERIFY COUNTS? YES
[2016-09-25 10:58] LABS: ANISOCYTOSIS 1+
[2016-09-25 10:59] LABS: LARGE PLATELETS 1+
[2016-09-25] MEDS ORDERED: D5%-0.45% NACL 1,000 ML IV ONE (11:13)
[2016-09-25] MEDS ORDERED: VANCOMYCIN PER PHARMACY MC ONE (11:30)
[2016-09-25] MEDS ORDERED: LEVOFLOXACIN/PMX 750MG/150ML 150 ML IVPB ONE (11:30)
[2016-09-25] MEDS ORDERED: PHARMACOKINETIC CONSULTATION MC ONE (11:30)
[2016-09-25] MEDS ORDERED: SODIUM CHLORIDE 0.9% 1,000ML IVBOLUS ONE ×2 (11:30→13:00)
[2016-09-25] MEDS ORDERED: VANCOMYCIN 1,400 MG in SODIUM CHLORIDE 0.9% 250 ML IV ONE (12:00)
[2016-09-25] MEDS ORDERED: LEVOFLOXACIN/PMX 750MG/150ML 150 ML ONE (12:09)
[2016-09-25] MEDS ORDERED: HYDROcodone/APAP 5/325 TABLET PO PRN (12:30)
[2016-09-25] MEDS ORDERED: morphine SULFATE 10 MG/ML, 1ML IVPush PRN (12:30)
[2016-09-25] MEDS ORDERED: POLYETHYLENE GLYCOL 17 GM PACKET PO PRN ×2 (12:30→13:00)
[2016-09-25] MEDS ORDERED: ONDANSETRON ODT 4 MG PO PRN (12:30)
[2016-09-25] MEDS ORDERED: BISACODYL 10 MG SUPP PR PRN (12:30)
[2016-09-25] MEDS ORDERED: DOCUSATE 100 MG CAPSULE PO PRN (12:30)
[2016-09-25] MEDS ORDERED: ACETAMINOPHEN 325 MG TABLET PO PRN (12:30)
[2016-09-25] MEDS ORDERED: ENALAPRILAT 1.25 MG/ML, 2ML IVPush PRN (12:30)
[2016-09-25] MEDS ORDERED: OXYcodone IR 5MG TABLET PO PRN (13:00)
[2016-09-25] MEDS ORDERED: ENOXAPARIN 30 MG/0.3 ML SQ SCH (15:00)
[2016-09-25] MEDS ORDERED: ENOXAPARIN 40 MG/0.4 ML SQ SCH (15:00)
[2016-09-25] MEDS ORDERED: PHARMACOKINETIC MONITORING MC PRN (15:00)
[2016-09-25] MEDS ORDERED: VANCOMYCIN PER PHARMACY MC PRN (15:00)
[2016-09-25 15:25] VITALS: BP 92/57
[2016-09-25] MEDS: LACTOBACILLUS CHEW TABLET PO SCH ×2 (15:58→21:23)
[2016-09-25] MEDS: ENOXAPARIN 30 MG/0.3 ML SQ SCH (15:58)
[2016-09-25] MEDS ORDERED: SODIUM CHLORIDE 0.9% 1,000 ML IV SCH (16:30)
[2016-09-25] MEDS: D5%-0.9% NACL 1,000 ML IV SCH (16:57)
[2016-09-25 20:00] VITALS: BP 99/63
[2016-09-25] MEDS: INSULIN ASPART 100 UNITS/ML, PEN SQ-INSULIN SCH (21:00)
[2016-09-25] MEDS: SPIRONOLACTONE 50 MG TABLET PO SCH (21:23)
[2016-09-25] MEDS: PREGABALIN 75 MG CAPSULE PO SCH (21:23)
[2016-09-26] MEDS: D5%-0.9% NACL 1,000 ML IV SCH ×3 (00:46→17:00)
[2016-09-26 03:00] VITALS: BP 107/61
[2016-09-26 05:43] LABS: ASPARTATE AMINO TRANSFERASE 59 U/L (15-37); BLOOD UREA NITROGEN 76 mg/dL (7-18)
[2016-09-26] MEDS: INSULIN ASPART 100 UNITS/ML, PEN SQ-INSULIN SCH ×4 (07:00→20:28)
[2016-09-26 07:36] VITALS: BP 104/65
[2016-09-26] MEDS: FLUTICASONE/VILANTEROL 100-25MCG/INH INH SCH (08:48)
[2016-09-26] MEDS: ALLOPURINOL 100 MG TABLET PO SCH (08:48)
[2016-09-26] MEDS: LACTOBACILLUS CHEW TABLET PO SCH ×3 (08:49→20:35)
[2016-09-26] MEDS: BENAZEPRIL 20 MG TABLET PO SCH (08:49)
[2016-09-26] MEDS: CLOPIDOGREL 75 MG TABLET PO SCH (08:49)
[2016-09-26] MEDS: METOPROLOL SUCCINATE 50 MG TAB.ER.24H PO SCH (08:49)
[2016-09-26] MEDS: ASPIRIN 81 MG TABLET EC PO SCH (08:49)
[2016-09-26] MEDS: SPIRONOLACTONE 50 MG TABLET PO SCH ×2 (08:49→20:35)
[2016-09-26] MEDS: CYANOCOBALAMIN 1,000 MCG TABLET PO SCH (08:49)
[2016-09-26] MEDS: EZETIMIBE 10 MG TABLET PO SCH (08:49)
[2016-09-26] MEDS: FUROSEMIDE 40 MG TABLET PO SCH (08:49)
[2016-09-26] MEDS: PREGABALIN 75 MG CAPSULE PO SCH ×2 (08:49→20:35)
[2016-09-26] MEDS ORDERED: ALLOPURINOL 300 MG TABLET PO SCH (09:00)
[2016-09-26] MEDS ORDERED: VANCOMYCIN 1,100 MG in SODIUM CHLORIDE 0.9% 250 ML IVPB SCH (09:00)
[2016-09-26] MEDS ORDERED: VANCOMYCIN 1,400 MG in SODIUM CHLORIDE 0.9% 250 ML IV ONE (10:00)
[2016-09-26] MEDS: ONDANSETRON 2MG/ML, 2ML IVPush PRN ×2 (11:17→20:35)
[2016-09-26] MEDS ORDERED: LEVOFLOXACIN/PMX 750MG/150ML 150 ML IV SCH (12:30)
[2016-09-26] MEDS: FAMOTIDINE 20 MG/2 ML IVPush SCH ×2 (12:43→20:35)
[2016-09-26 15:02] VITALS: BP 93/56
[2016-09-26] MEDS: ENOXAPARIN 30 MG/0.3 ML SQ SCH (16:28)
[2016-09-26 20:00] VITALS: BP 104/65
[2016-09-27] MEDS: D5%-0.9% NACL 1,000 ML IV SCH ×2 (01:59→07:52)
[2016-09-27 02:00] VITALS: BP 121/67
[2016-09-27] MEDS: ONDANSETRON 2MG/ML, 2ML IVPush PRN (06:45)
[2016-09-27] MEDS: INSULIN ASPART 100 UNITS/ML, PEN SQ-INSULIN SCH ×4 (07:00→20:32)
[2016-09-27 07:13] VITALS: BP 103/59
[2016-09-27] MEDS: FLUTICASONE/VILANTEROL 100-25MCG/INH INH SCH (07:51)
[2016-09-27] MEDS: ASPIRIN 81 MG TABLET EC PO SCH (07:53)
[2016-09-27] MEDS: FUROSEMIDE 40 MG TABLET PO SCH (07:53)
[2016-09-27] MEDS: EZETIMIBE 10 MG TABLET PO SCH (07:53)
[2016-09-27] MEDS: ALLOPURINOL 100 MG TABLET PO SCH (07:53)
[2016-09-27] MEDS: PREGABALIN 75 MG CAPSULE PO SCH ×2 (07:53→20:41)
[2016-09-27] MEDS: FAMOTIDINE 20 MG/2 ML IVPush SCH ×2 (07:53→21:00)
[2016-09-27] MEDS: SPIRONOLACTONE 50 MG TABLET PO SCH ×2 (07:54→20:41)
[2016-09-27] MEDS: LACTOBACILLUS CHEW TABLET PO SCH ×3 (07:54→20:41)
[2016-09-27] MEDS: BENAZEPRIL 20 MG TABLET PO SCH (07:54)
[2016-09-27] MEDS: METOPROLOL SUCCINATE 50 MG TAB.ER.24H PO SCH (07:55)
[2016-09-27] MEDS: CLOPIDOGREL 75 MG TABLET PO SCH (07:55)
[2016-09-27] MEDS: CYANOCOBALAMIN 1,000 MCG TABLET PO SCH (07:55)
[2016-09-27 07:57] VITALS: BP 114/64
[2016-09-27] MEDS: LEVOFLOXACIN/PMX 500MG/100ML 100 ML IV SCH (11:39)
[2016-09-27] MEDS: ENOXAPARIN 30 MG/0.3 ML SQ SCH (13:48)
[2016-09-27 14:13] VITALS: BP 102/66
[2016-09-27 19:14] VITALS: BP 98/60
[2016-09-27] MEDS: ZOLPIDEM 5MG TABLET PO PRN (20:41)
[2016-09-28 04:40] VITALS: BP 98/58
[2016-09-28] MEDS: INSULIN ASPART 100 UNITS/ML, PEN SQ-INSULIN SCH ×4 (07:00→21:00)
[2016-09-28] MEDS: FLUTICASONE/VILANTEROL 100-25MCG/INH INH SCH (08:55)
[2016-09-28 08:57] VITALS: BP 100/62
[2016-09-28] MEDS: CYANOCOBALAMIN 1,000 MCG TABLET PO SCH (08:57)
[2016-09-28] MEDS: EZETIMIBE 10 MG TABLET PO SCH (08:57)
[2016-09-28] MEDS: CLOPIDOGREL 75 MG TABLET PO SCH (08:58)
[2016-09-28] MEDS: METOPROLOL SUCCINATE 50 MG TAB.ER.24H PO SCH ×2 (08:58→09:00)
[2016-09-28] MEDS: ALLOPURINOL 100 MG TABLET PO SCH (08:58)
[2016-09-28] MEDS: FAMOTIDINE 20 MG/2 ML IVPush SCH ×2 (08:58→21:33)
[2016-09-28] MEDS: FUROSEMIDE 40 MG TABLET PO SCH (08:59)
[2016-09-28] MEDS: PREGABALIN 75 MG CAPSULE PO SCH ×2 (08:59→21:00)
[2016-09-28] MEDS: BENAZEPRIL 20 MG TABLET PO SCH ×2 (08:59→09:00)
[2016-09-28] MEDS: ASPIRIN 81 MG TABLET EC PO SCH (09:00)
[2016-09-28] MEDS: LACTOBACILLUS CHEW TABLET PO SCH ×3 (09:00→21:00)
[2016-09-28] MEDS: SPIRONOLACTONE 50 MG TABLET PO SCH ×2 (09:00→21:00)
[2016-09-28 13:51] VITALS: BP 103/64
[2016-09-28] MEDS: ENOXAPARIN 30 MG/0.3 ML SQ SCH (15:30)
[2016-09-28 19:50] VITALS: BP 112/70
[2016-09-29 01:02] VITALS: BP 116/75
[2016-09-29] MEDS: ONDANSETRON 2MG/ML, 2ML IVPush PRN ×3 (03:31→21:00)
[2016-09-29] MEDS ORDERED: VANCOMYCIN 1,400 MG in SODIUM CHLORIDE 0.9% 250 ML IV ONE (05:00)
[2016-09-29] MEDS: INSULIN ASPART 100 UNITS/ML, PEN SQ-INSULIN SCH ×4 (07:00→21:00)
[2016-09-29 07:08] VITALS: BP 112/68
[2016-09-29] MEDS: ALLOPURINOL 100 MG TABLET PO SCH (09:00)
[2016-09-29] MEDS: LACTOBACILLUS CHEW TABLET PO SCH ×3 (09:00→21:00)
[2016-09-29] MEDS: METOPROLOL SUCCINATE 50 MG TAB.ER.24H PO SCH (09:00)
[2016-09-29] MEDS: SPIRONOLACTONE 50 MG TABLET PO SCH ×2 (09:00→21:00)
[2016-09-29] MEDS: FUROSEMIDE 40 MG TABLET PO SCH (09:00)
[2016-09-29] MEDS: CLOPIDOGREL 75 MG TABLET PO SCH (09:00)
[2016-09-29] MEDS: CYANOCOBALAMIN 1,000 MCG TABLET PO SCH (09:00)
[2016-09-29] MEDS ORDERED: BENAZEPRIL 10 MG TABLET PO SCH (09:00)
[2016-09-29] MEDS: ASPIRIN 81 MG TABLET EC PO SCH (09:00)
[2016-09-29] MEDS: PREGABALIN 75 MG CAPSULE PO SCH ×2 (09:00→21:00)
[2016-09-29] MEDS: EZETIMIBE 10 MG TABLET PO SCH (09:00)
[2016-09-29 09:32] LABS: ASPARTATE AMINO TRANSFERASE 34 U/L (15-37); BLOOD UREA NITROGEN 57 mg/dL (7-18)
[2016-09-29] MEDS: FAMOTIDINE 20 MG/2 ML IVPush SCH ×2 (11:21→21:00)
[2016-09-29] MEDS: FLUTICASONE/VILANTEROL 100-25MCG/INH INH SCH (11:21)
[2016-09-29] MEDS: LEVOFLOXACIN/PMX 500MG/100ML 100 ML IV SCH (12:39)
[2016-09-29 13:14] VITALS: BP 84/53
[2016-09-29] MEDS ORDERED: FENTANYL PF 100 MCG/2ML ONE (13:28)
[2016-09-29] MEDS: ENOXAPARIN 30 MG/0.3 ML SQ SCH (17:04)
[2016-09-29 19:42] VITALS: BP 98/61
[2016-09-29] MEDS: ZOLPIDEM 5MG TABLET PO PRN (21:00)
[2016-09-30 02:05] VITALS: BP 110/68
[2016-09-30] MEDS: INSULIN ASPART 100 UNITS/ML, PEN SQ-INSULIN SCH ×4 (07:00→20:20)
[2016-09-30 07:34] VITALS: BP 103/64
[2016-09-30] MEDS: SPIRONOLACTONE 50 MG TABLET PO SCH ×2 (07:48→20:20)
[2016-09-30] MEDS: FLUTICASONE/VILANTEROL 100-25MCG/INH INH SCH (07:48)
[2016-09-30] MEDS: FAMOTIDINE 20 MG/2 ML IVPush SCH ×2 (07:48→20:19)
[2016-09-30] MEDS: FUROSEMIDE 40 MG TABLET PO SCH (07:49)
[2016-09-30] MEDS: CYANOCOBALAMIN 1,000 MCG TABLET PO SCH (07:49)
[2016-09-30] MEDS: LACTOBACILLUS CHEW TABLET PO SCH ×3 (07:49→20:20)
[2016-09-30] MEDS: PREGABALIN 75 MG CAPSULE PO SCH ×2 (07:49→20:20)
[2016-09-30] MEDS: ASPIRIN 81 MG TABLET EC PO SCH (07:49)
[2016-09-30] MEDS: ALLOPURINOL 100 MG TABLET PO SCH (07:49)
[2016-09-30] MEDS: CLOPIDOGREL 75 MG TABLET PO SCH (07:49)
[2016-09-30] MEDS: METOPROLOL SUCCINATE 50 MG TAB.ER.24H PO SCH (07:49)
[2016-09-30] MEDS: EZETIMIBE 10 MG TABLET PO SCH (07:49)
[2016-09-30] MEDS ORDERED: FLUCONAZOLE 200 MG TABLET PO SCH (10:00)
[2016-09-30] MEDS: ONDANSETRON 2MG/ML, 2ML IVPush PRN (11:10)
[2016-09-30 12:44] VITALS: BP 104/56
[2016-09-30] MEDS: ENOXAPARIN 30 MG/0.3 ML SQ SCH (15:53)
[2016-09-30 20:02] VITALS: BP 101/61
[2016-09-30] MEDS: ZOLPIDEM 5MG TABLET PO PRN (20:20)
[2016-10-01 02:13] VITALS: BP 100/65
[2016-10-01 06:30] VITALS: BP 99/63
[2016-10-01] MEDS: INSULIN ASPART 100 UNITS/ML, PEN SQ-INSULIN SCH ×2 (07:00→11:00)
[2016-10-01] MEDS: METOPROLOL SUCCINATE 50 MG TAB.ER.24H PO SCH (09:00)
[2016-10-01] MEDS: FLUTICASONE/VILANTEROL 100-25MCG/INH INH SCH (09:30)
[2016-10-01] MEDS: LACTOBACILLUS CHEW TABLET PO SCH (09:31)
[2016-10-01] MEDS: FAMOTIDINE 20 MG/2 ML IVPush SCH (09:31)
[2016-10-01] MEDS: SPIRONOLACTONE 50 MG TABLET PO SCH (09:31)
[2016-10-01] MEDS: ASPIRIN 81 MG TABLET EC PO SCH (09:31)
[2016-10-01] MEDS: CLOPIDOGREL 75 MG TABLET PO SCH (09:32)
[2016-10-01] MEDS: FUROSEMIDE 40 MG TABLET PO SCH (09:32)
[2016-10-01] MEDS: PREGABALIN 75 MG CAPSULE PO SCH (09:32)
[2016-10-01] MEDS: EZETIMIBE 10 MG TABLET PO SCH (09:34)
[2016-10-01] MEDS: CYANOCOBALAMIN 1,000 MCG TABLET PO SCH (09:34)
[2016-10-01] MEDS: ALLOPURINOL 100 MG TABLET PO SCH (09:35)
[2016-10-01 12:05] VITALS: BP 98/62
== END 2016-10-01 13:58 | disposition hospice, home (50) | DRG 871 ==
LOC: ED 10:17 → EDIP 11:47 → 4EST 14:38
PROVIDERS: ADMIT Hospitalist; ATTEND Hospitalist
PROC: 0JH83XZ Insertion of Tunneled Vascular Access Device into Abdomen Subcutaneous Tissue and Fascia, Percutaneous Approach (ICD-10-PCS; principal; 2016-09-29)
PROC: 0W9G30Z Drainage of Peritoneal Cavity with Drainage Device, Percutaneous Approach (ICD-10-PCS; 2016-09-29)
PROC: BD47ZZZ Ultrasonography of Gastrointestinal Tract (ICD-10-PCS; 2016-09-29)
DX: A41.9 Sepsis, unspecified organism (principal); J15.9 Unspecified bacterial pneumonia; N17.0 Acute kidney failure with tubular necrosis; R18.8 Other ascites; C22.1 Intrahepatic bile duct carcinoma; A04.7 Enterocolitis due to Clostridium difficile; C78.89 Secondary malignant neoplasm of other digestive organs; E87.2 Acidosis; I13.0 Hypertensive heart and chronic kidney disease with heart failure and stage 1 through stage 4 chronic kidney disease, or unspecified chronic kidney disease; I50.42 Chronic combined systolic (congestive) and diastolic (congestive) heart failure; J44.0 Chronic obstructive pulmonary disease with (acute) lower respiratory infection; J98.11 Atelectasis; N39.0 Urinary tract infection, site not specified; Q60.0 Renal agenesis, unilateral; E11.22 Type 2 diabetes mellitus with diabetic chronic kidney disease; E11.649 Type 2 diabetes mellitus with hypoglycemia without coma; E78.5 Hyperlipidemia, unspecified; E86.0 Dehydration; E87.5 Hyperkalemia; I25.10 Atherosclerotic heart disease of native coronary artery without angina pectoris; N18.3 Chronic kidney disease, stage 3 (moderate); Z51.5 Encounter for palliative care; Z66 Do not resuscitate; Z85.05 Personal history of malignant neoplasm of liver; Z86.14 Personal history of Methicillin resistant Staphylococcus aureus infection; I25.2 Old myocardial infarction; Z86.73 Personal history of transient ischemic attack (TIA), and cerebral infarction without residual deficits; Z87.891 Personal history of nicotine dependence; Z90.5 Acquired absence of kidney; Z95.0 Presence of cardiac pacemaker
CPT/HCPCS: 36415; 49418; 71010; 80053; 80202; 81001; 82570; 82962; 83605; 83735; 84100; 84300; 85025; 85610; 85730; 86480; 87040; 87086; 87106; 93005; 96361; 96365; 96366; J1650; J1815; J1956; J2405; J3010; J3370; J7042; C1729; J7030; J7050; S0028